=== PATIENT | female | born 1960 | race Caucasian/White ===

== ENCOUNTER → 2021-07-02 10:18 | Outpatient (BNVA) | payer MEDICARE, MEDICAID, SELFPAY | PROVIDERS: PCP Nurse Practitioner Family; Visit Provider Nurse Practitioner Family | DX: I10 Essential (primary) hypertension (principal); E78.5 Hyperlipidemia, unspecified; F32.A Depression, unspecified; K21.9 Gastro-esophageal reflux disease without esophagitis | CPT/HCPCS: 80053 ==

== ENCOUNTER → 2021-11-27 10:09 | Outpatient (BNVA) | payer MEDICARE, MEDICAID, SELFPAY | PROVIDERS: PCP Nurse Practitioner Family; Visit Provider Nurse Practitioner Family | DX: I10 Essential (primary) hypertension (principal); E78.5 Hyperlipidemia, unspecified | CPT/HCPCS: 80053; 80061 ==

== ENCOUNTER 2023-10-15 19:31 | Inpatient (IN) | payer MEDICARE, MEDICAID, SELFPAY ==
[2023-10-15 19:34] VITALS: BP 126/72; PULSE 116; RESP 20; TEMP 38.8; O2SAT 96
[2023-10-15 19:49] VITALS: BP 126/66; PULSE 114; RESP 20; O2SAT 91
--- NOTE | 2023-10-15 19:53 | CTR_ITS ---
PROCEDURE INFORMATION: Exam: CT Head Without Contrast Exam date and time: 10/15/2023 8:02 PM Age: 62 years old Clinical indication: Altered mental status/memory loss and fever; Confusion or disorientation; Patient HX: EMS arrival for AMS. Confusion with fever. TECHNIQUE: Imaging protocol: Computed tomography of the head without contrast. Radiation optimization: All CT scans at this facility use at least one of these dose optimization techniques: automated exposure control; mA and/or kV adjustment per patient size (includes targeted exams where dose is matched to clinical indication); or iterative reconstruction. COMPARISON: No relevant prior studies available. RADIATION DOSE METRICS: Total DLP (mGy-cm): 1030.88 FINDINGS: Brain: Normal. No hemorrhage. Unremarkable white matter. No mass effect. Cerebral ventricles: No ventriculomegaly. Paranasal sinuses: Visualized sinuses are unremarkable. No fluid levels. Mastoid air cells: Visualized mastoid air cells are well aerated. Bones: Unremarkable. No acute fracture. Soft tissues: Unremarkable. CT/CT head wo con* [id number] IMPRESSION: No acute intracranial abnormality.
--- NOTE | 2023-10-15 19:53 | XRR_ITS ---
PROCEDURE INFORMATION: Exam: XR Chest Exam date and time: 10/15/2023 7:58 PM Age: 62 years old Clinical indication: Fever; Additional info: Fever AMS TECHNIQUE: Imaging protocol: Radiologic exam of the chest. Views: 1 view. COMPARISON: No relevant prior studies available. FINDINGS: Lungs: Central vascular prominence without overt edema. No focal consolidations. Pleural spaces: Unremarkable. No pleural effusion. No pneumothorax. Heart/Mediastinum: Unremarkable. No cardiomegaly. Bones/joints: Unremarkable. XR/XR chest 1V portable [id number] IMPRESSION: Central vascular prominence without overt edema. No focal consolidations.
[2023-10-15 20:08] LABS: Basophils % 0.3 %; Hematocrit 35.8 % (36-47); Lymphocytes # 0.9 10^3/uL (0.8-4.8); Lymphocytes % 27.3 %; Mean Corpuscular HGB Conc 31.8 g/dL (30-55); Mean Corpuscular Hemoglobin 29.1 pg (27-33); Mean Corpuscular Volume 91.3 fl (85-98); Mean Platelet Volume 12.9 fL (7.4-10.4); Monocytes # 0.3 10^3/uL (0.2-0.9); Monocytes % 9.9 %; Neutrophils # 2.07 10^3/uL (1.8-7.7); Neutrophils % 62.2 %; Nucleated Red Blood Cells % 0 %; Platelet Count 79 10^3/cmm (157-399); Red Blood Count 3.92 10^6/uL (3.85-5.65); Red Cell Distribution Width 13.5 % (12.1-15.1); White Blood Count 3.33 10^3/uL (3.29-11.43)
--- NOTE | 2023-10-15 20:22 | W.ED.AMS ---
HPI - Altered Mental Status General: Chief Complaint: Altered Mental Status Stated Complaint: AMS Time Seen by Provider: 10/15/23 19:37 History of Present Illness: 62-year-old female with fever for the last 2 to 3 days she says she has been sick since Wednesday. She had a mild cough. No sputum production. She is having confusion. No vomiting or diarrhea. The patient lives with her daughter, who called the ambulance due to the confusion. [facility] ED PFSH: Medical History Hyperlipidemia Depression Family History Mother CAD (coronary artery disease) Social History Smoking and tobacco/nicotine status: never used tobacco/nicotine Physical Exam Const: GENERAL APPEARANCE: cooperative and ill appearing (Mildly) ORIENTATION/CONSCIOUSNESS: Yes awake, Yes oriented to person and Yes oriented to place; not oriented to time HENMT: COMMON NORMALS: normocephalic and atraumatic HEAD & SCALP: normocephalic and atraumatic FACE & SINUS: normal facial exam and face symmetric Eye: COMMON NORMALS: Equal, round and reactive pupils present and EOMs intact bilaterally PUPIL: Yes Equal, round and reactive pupils present Neck/C-Spine: CERVICAL SPINE: Yes cervical ROM normal Chest: CHEST: Yes Symmetrical chest wall rise Resp: COMMON NORMALS: normal respiratory effort, No use of accessory muscles and clear to auscultation bilaterally AUSCULTATION: clear to auscultation bilaterally Cardio: COMMON NORMALS: regular rhythm RATE: tachycardic RHYTHM: regular rhythm GI: COMMON NORMALS: Normal to inspection, nondistended, normoactive bowel sounds present and Soft to palpation PALPATION: Yes Soft to palpation Neuro: SENSORIUM/ORIENTATION: Yes oriented to person, Yes oriented to place and No oriented to time Course Vital Signs: Vital signs: Vital Signs Temperature 99.0 F 10/15/23 23:01 Pulse Rate 95 10/15/23 23:01 Respiratory Rate 18 10/15/23 23:01 Blood Pressure 118/58 10/15/23 23:01 Pulse Oximetry 94 10/15/23 23:01 Oxygen Delivery Me thod Room Air 10/15/23 23:01 MDM - Altered Mental Status Medical Decision Making Patient is awake and alert. She is answering most simple questions appropriately. She is mildly confused with more complex questions like explaining where she lives, etc. She is tachycardic. She has a fever of 102. She has leukopenia and thrombocytopenia. She does appear to have multiple bites to her legs. No other definite source of infection is found. Chest x-ray is nonacute. Head CT is nonacute. CRP is 88. COVID antigen is negative. Urinalysis does not reveal urinary tract infection. With thrombocytopenia, mild leukopenia, and a history of bug bites, tick panel has been ordered. Spoke with hospitalist. He will admit the patient. She has received a sepsis bolus and antibiotics here in the ER after blood cultures. Lab Data 10/15/23 19:42 10/15/23 19:42 Radiology Impressions Chest X-Ray 10/15/23 19:53 IMPRESSION: Central vascular prominence without overt edema. No focal consolidations. Head CT 10/15/23 19:53 IMPRESSION: No acute intracranial abnormality. Laboratory Results WBC 3.33 10^3/uL (3.29-11.43) 10/15/23 19:42 RBC 3.92 10^6/uL (3.85-5.65) 10/15/23 19:42 Hgb 11.40 g/dL (11.27-16.99) 10/15/23 19:42 Hct 35.8 % (36-47) L 10/15/23 19:42 MCV 91.3 fl (85-98) 10/15/23 19:42 MCH 29.1 pg (27-33) 10/15/23 19:42 MCHC 31.8 g/dL (30-55) 10/15/23 19:42 RDW 13.5 % (12.1-15.1) 10/15/23 19:42 Plt Count 79 10^3/cmm (157-399) L 10/15/23 19:42 MPV 12.9 fL (7.4-10.4) H 10/15/23 19:42 Neut % (Auto) 62.2 % 10/15/23 19:42 Lymph % (Auto) 27.3 % 10/15/23 19:42 [place] % (Auto) 9.9 % 10/15/23 19:42 Eos % (Auto) 0.0 % 10/15/23 19:42 Baso % (Auto) 0.3 % 10/15/23 19:42 Neut # (Auto) 2.07 10^3/uL (1.8-7.7) 10/15/23 19:42 Lymph # (Auto) 0.9 10^3/uL (0.8-4.8) 10/15/23 19:42 [place] # (Auto) 0.3 10^3/uL (0.2-0.9) 10/15/23 19:42 Eos # (Auto) 0.0 10^3/uL (0.0-0.8) 10/15/23 19:42 Baso # (Auto) 0.0 10^3/uL (0.0-0.1) 10/15/23 19:42 Nucleated RBC % (auto) 0 % 10/15/23 19:42 Nucleated RBCs # 0.0 /100WBC 10/15/23 19:42 Sodium 137 mmol/L (136-145) 10/15/23 19:42 Potassium 4.3 mmol/L (3.5-5.1) 10/15/23 19:42 Chloride 102 mmol/L (98-107) 10/15/23 19:42 Carbon Dioxide 22 mmol/L (22-29) 10/15/23 19:42 Anion Gap 17.3 (5-19) 10/15/23 19:42 BUN 14 mg/dL (8-23) 10/15/23 19:42 Creatinine 0.9 mg/dL (0.5-0.9) 10/15/23 19:42 GFR Calculation 63.7 mL/min (90-130) L 10/15/23 19:42 Glucose 92 mg/dL (65-115) 10/15/23 19:42 Estimat Average Glucose 111 10/15/23 19:42 Hemoglobin A1c 5.5 % (4.0-6.0) 10/15/23 19:42 Calculated Osmolality 284 mOsm/kg (285-295) L 10/15/23 19:42 Lactic Acid 0.8 mmol/L (0.5-2.2) 10/15/23 19:42 Calcium 7.9 mg/dL (8.5-10.5) L 10/15/23 19:42 Total Bilirubin 0.4 mg/dL (0.15-1.2) 10/15/23 19:42 AST 24 U/L (0-32) 10/15/23 19:42 ALT 24 U/L (0-33) 10/15/23 19:42 Alkaline Phosphatase 81 U/L (35-105) 10/15/23 19:42 Creatine Kinase 61 U/L (26-192) 10/15/23 19:42 C-Reactive Protein 87.5 mg/L (0.0-4.9) H 10/15/23 19:42 Total Protein 5.6 g/dL (6.6-8.7) L 10/15/23 19:42 Albumin 3.1 g/dL (3.5-5.2) L 10/15/23 19:42 Globulin 2.5 g/dL (1.3-4.6) 10/15/23 19:42 TSH 0.86 uIU/mL (0.27-4.20) 10/15/23 19:42 Urine Color Yellow (Yellow) 10/15/23 22:05 Urine Appearance Clear (CLEAR) 10/15/23 22:05 Urine pH 5 (5-7) 10/15/23 22:05 Ur Specific [place] 1.015 (1.005-1.030) 10/15/23 22:05 Urine Protein Trace (Negative) 10/15/23 22:05 Urine Glucose (UA) Norm (Normal) 10/15/23 22:05 Urine Ketones 1+ (Negative) H 10/15/23 22:05 Urine Blood Neg (Negative) 10/15/23 22:05 Urine Nitrate Negative (Negative) 10/15/23 22:05 Urine Bilirubin Neg (Negative) 10/15/23 22:05 Urine Urobilinogen Neg mg/dL (Negative) 10/15/23 22:05 Ur Leukocyte Esterase Negative (Negative) 10/15/23 22:05 Urine RBC 0-4 /hpf (0-2) H 10/15/23 22:05 Urine WBC 0-4 /hpf (0-5) H 10/15/23 22:05 Ur Squamous Epith Cells 0-4 /hpf (0-5) H 10/15/23 22:05 Amorphous Sediment Not Reportable 10/15/23 22:05 Urine Bacteria 1+ /hpf (NONE) H 10/15/23 22:05 Urine Mucus 2+ /hpf 10/15/23 22:05 SARS-CoV-2 Ag (Rapid) negative (Negative) 10/15/23 20:54 All radiology interpretation(s) finalized by discharge Discharge Plan Discharge Patient Disposition: Admitted As Inpatient Admit Provider: Rabia Cameron Clinical Impression: Sepsis, Fever Condition: Stable Coding Level of Care Code ED Dehydrogenation Converter Operator for Marcelo Severino
--- NOTE | 2023-10-15 20:33 | P.HP_ITS ---
Providers/Chief Complaint 2 Primary Care Provider: KENZIE Ruggiero Chief Complaint: AMS History of Present Illness Lula Tena is a 62 year old female who was sent by the daughter via EMS because of her confusion. In the ER she was diagnosed with fever and tachycardia. Patient is very pleasant and cooperative we have not seen any sign of meningitis, she is confused with word finding difficulty. CT head unremarkable there is no focal deficit, patient is stating that she is not sure why she was sent to the hospital. She is not endorsing headache, neck pain, chest pain, diarrhea or dysuria. She also has not noticed any tick bites. She has multiple rashes over her lower extremities. She is thrombocytopenic as well. Family not at the bedside I have tried to call her daughter twice, she is not picking up the phone call COVID-19 is negative, UA and tick panel pending Fever tachycardia tachypnea SIRS criteria met she received septic bolus along antibiotics, lactic acid normal No leukocytosis Review of Systems 2 Const: Reports: fever(s) Eyes: Denies: change in vision ENMT: Denies: throat pain Card: Denies: chest pain Resp: Denies: dyspnea GI: Denies: abdominal pain : Denies: flank pain Musc: Denies: neck pain Medications/Allergies Home Medications Medication Instructions Recorded Confirmed Last Taken Type omeprazole magnesium 20 mg 20 mg PO DAILY #30 tabs 07/02/21 12/01/21 Unknown Rx tablet,delayed release (Prilosec OTC) simvastatin 10 mg tablet (Zocor) 10 mg PO DAILY #90 tabs 01/07/22 Unknown Rx Allergies Allergy/AdvReac Type Severity Reaction Status Date / Time Penicillins Allergy vomiting Verified 12/01/21 14:31 PFSH Acute 2 PFSH: Medical History Hyperlipidemia Depression Family History Mother CAD (coronary artery disease) Social History Smoking and tobacco/nicotine status: never used tobacco/nicotine Vitals/I&O/Wt Last Vital Signs Temp 102 F H 10/15/23 19:34 Pulse 114 H 10/15/23 19:49 Resp 20 H 10/15/23 19:49 BP 126/66 10/15/23 19:49 Pulse Ox 91 10/15/23 19:49 O2 Del Method Room Air 10/15/23 19:49 Weight last 48 hrs Weight 79.379 kg Physical Exam 2 Narrative: Clinically patient looks dehydrated Word finding difficulty Pleasant but confused Oriented to herself only I do not see any focal deficit No sign of meningitis Kerning's and Brudzinski sign negative Awake and alert Tachycardic with fever Abdomen soft I do not see any joint swelling No apparent tick bite Multiple rashes over lower extremities S1, S2 Abdomen is soft Data 10/15/23 19:42 10/15/23 19:42 A&P Assessment and plan (1) Confusion: (2) Metabolic encephalopathy: (3) Fever: (4) Dehydration: (5) Sepsis: Plan Sepsis Source unknown Criteria met with fever tachypnea tachycardia no lactic acid anemia no leukocytosis X-ray unremarkable other than mild congestion CT head unremarkable No sign of meningitis Concern for tick bite Thrombocytopenia I would avoid DVT prophylaxis with anticoagulating agent Use SCDs Started on vancomycin and Zosyn Septic bolus has been given I will keep her on IV fluids overnight I do not have her previous medical history, family not reachable Please contact her family the morning Check inflammatory markers COVID-19 is negative I will request COVID PCR Full code Cardiac diet Attestations 2 Medical Necessity Statement*: More than 2 midnights anticipated Diagnoses Confusion R41.0 Metabolic encephalopathy G93.41 Fever R50.9 Dehydration E86.0 Sepsis A41.9
[2023-10-15 20:38] LABS: Lactic Sepsis W/Reflex 0.8 mmol/L (0.5-2.2)
[2023-10-15 20:41] LABS: Alanine Aminotransferase 24 U/L (0-33); Albumin Level 3.1 g/dL (3.5-5.2); Alkaline Phosphatase 81 U/L (35-105); Anion Gap 17.3 (5-19); Aspartate Amino Transferase 24 U/L (0-32); Blood Urea Nitrogen 14 mg/dL (8-23); C Reactive Protein 87.5 mg/L (0.0-4.9); Calcium 7.9 mg/dL (8.5-10.5); Carbon Dioxide 22 mmol/L (22-29); Chloride 102 mmol/L (98-107); Creatine Phosphokinase 61 U/L (26-192); Creatinine Clr Calc Pharmacy 65.4833; Globulin 2.5 g/dL (1.3-4.6); Glomerular Filtration Rate 63.7 mL/min (90-130); Glucose 92 mg/dL (65-115); Osmolality Calculated 284 mOsm/kg (285-295); Potassium 4.3 mmol/L (3.5-5.1); Sodium 137 mmol/L (136-145); Total Bilirubin 0.4 mg/dL (0.15-1.2); Total Protein 5.6 g/dL (6.6-8.7)
--- NOTE | 2023-10-15 20:52 | ECG_ITS ---
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 Measurements Intervals [place] Rate: 112 P: 60 NV: 154 QRS: -7 QRSD: 89 T: 53 QT: 310 QTc: 423 Interpretive Statements SINUS TACHYCARDIA Otherwise normal EKG No previous ECG available for comparison Electronically Signed On 10-16-2023 16:47:14 CDT by Al Stringer M.D. [email or web address] at stone [email or web address] [id number]
[2023-10-15 20:53] VITALS: BP 94/69; PULSE 114; RESP 18; O2SAT 94
[2023-10-15] MEDS: acetaminophen 500 mg Tablet 1000 MG PO (20:53)
[2023-10-15] MEDS: cefTRIAXone 1,000 mg SDV 1000 MG IVP (21:02)
[2023-10-15 21:28] LABS: SARS Covid-2 Antigen negative (Negative)
[2023-10-15] MEDS: sodium chloride 0.9% 2,381.37 ML 2381.37 ML IV (21:34)
[2023-10-15 21:49] VITALS: BP 132/80; PULSE 101; RESP 24; O2SAT 91
[2023-10-15 22:43] LABS: Add Urine Microscopic? YES; Bilirubin Urine Neg (Negative); Blood Urine Neg (Negative); Glucose Urine UA Norm (Normal); Ketones Urine 1+ (Negative); Leukocyte Esterase Urine Negative (Negative); Nitrate Urine Negative (Negative); Protein Urine Trace (Negative); Specific Gravity, Urine 1.015 (1.005-1.030); Urine Appearance Clear (CLEAR); Urine Color Yellow (Yellow); Urobilinogen Urine Neg (Negative); pH Urine 5 (5-7)
[2023-10-15 22:44] LABS: Bacteria Urine 1+ /hpf; Mucus Urine 2+ /hpf; RBC Urine 0-4 /hpf (0-2); Squamous Epithelial Cell Urine 0-4 /hpf (0-5); WBC Urine 0-4 /hpf (0-5)
[2023-10-15 23:00] LABS: Estmated Average Glucose 111; Hemoglobin A1C 5.5 % (4.0-6.0)
[2023-10-15 23:01] VITALS: BP 118/58; PULSE 95; RESP 18; TEMP 37.2; O2SAT 94
[2023-10-15 23:08] LABS: Thyroid Stimulating Hormone 0.86 uIU/mL (0.27-4.20)
[2023-10-15] MEDS: piperacillin-tazobactam 3.375 GM in sodium chloride 0.9% (plus) 50 ML IV (23:18)
[2023-10-16] MEDS: sodium chloride 0.9% 1,000 ML 75 ML IV ×2 (00:10→13:44)
[2023-10-16] MEDS: vancomycin 1,000 MG in sodium chloride 0.9% 250 ML 250 MG IV ×3 (00:13→23:23)
[2023-10-16 00:58] VITALS: BMI 30.9
[2023-10-16] MEDS: piperacillin-tazobactam 3.375 GM in sodium chloride 0.9% (plus) 50 ML IV ×3 (01:34→17:27)
[2023-10-16 02:47] LABS: Vitamin B12 342 pg/mL (232-1245)
[2023-10-16 04:05] VITALS: BP 112/72; PULSE 98; RESP 18; TEMP 37.4; O2SAT 91
[2023-10-16 05:24] LABS: Basophils % 0.6 %; Hematocrit 38.7 % (36-47); Lymphocytes # 0.9 10^3/uL (0.8-4.8); Lymphocytes % 28.5 %; Mean Corpuscular HGB Conc 30.5 g/dL (30-55); Mean Corpuscular Hemoglobin 29.5 pg (27-33); Mean Corpuscular Volume 96.8 fl (85-98); Mean Platelet Volume 12.3 fL (7.4-10.4); Monocytes # 0.2 10^3/uL (0.2-0.9); Monocytes % 7.6 %; Neutrophils # 1.97 10^3/uL (1.8-7.7); Neutrophils % 62.4 %; Nucleated Red Blood Cells % 0 %; Platelet Count 70 10^3/cmm (157-399); Red Cell Distribution Width 13.7 % (12.1-15.1); White Blood Count 3.16 10^3/uL (3.29-11.43)
[2023-10-16 05:41] LABS: Alanine Aminotransferase 23 U/L (0-33); Alkaline Phosphatase 79 U/L (35-105); Anion Gap 14.6 (5-19); Aspartate Amino Transferase 25 U/L (0-32); Blood Urea Nitrogen 13 mg/dL (8-23); Calcium 7.6 mg/dL (8.5-10.5); Carbon Dioxide 19 mmol/L (22-29); Chloride 112 mmol/L (98-107); Creatinine Clr Calc Pharmacy 68.8793; Globulin 2.4 g/dL (1.3-4.6); Glomerular Filtration Rate 63.7 mL/min (90-130); Glucose 89 mg/dL (65-115); Magnesium 1.8 mg/dL (1.7-2.3); Osmolality Calculated 292 mOsm/kg (285-295); Potassium 4.6 mmol/L (3.5-5.1); Sodium 141 mmol/L (136-145); Total Bilirubin 0.4 mg/dL (0.15-1.2); Total Protein 5.4 g/dL (6.6-8.7)
[2023-10-16 07:32] VITALS: BP 155/83; PULSE 109; RESP 16; TEMP 37.4; O2SAT 92
[2023-10-16 10:00] VITALS: PULSE 100; RESP 18; O2SAT 92
[2023-10-16] MEDS: doxycycline 100 MG in sodium chloride 0.9% (plus) 100 ML IV ×2 (10:31→21:43)
[2023-10-16 11:08] LABS: Procalcitonin 0.51 ng/mL (0-0.5)
[2023-10-16 11:26] LABS: Erythrocyte Sedimentation Rate 4 mm/hr (0-15)
[2023-10-16 11:32] LABS: Glucose Point of Care 71 mg/dL (70-110)
--- NOTE | 2023-10-16 11:50 | CTR_ITS ---
PROCEDURE INFORMATION: Exam: CT Chest Without Contrast; Diagnostic Exam date and time: 10/16/2023 1:21 PM Age: 62 years old Clinical indication: Other: Fever, confusion TECHNIQUE: Imaging protocol: Diagnostic computed tomography of the chest without contrast. Radiation optimization: All CT scans at this facility use at least one of these dose optimization techniques: automated exposure control; mA and/or kV adjustment per patient size (includes targeted exams where dose is matched to clinical indication); or iterative reconstruction. COMPARISON: CR (CHEST, ) 10/15/2023 7:58 PM RADIATION DOSE METRICS: Total DLP (mGy-cm): 991.15 FINDINGS: Lungs: See Pleural spaces finding. Pleural spaces: There are small bilateral pleural effusions with adjacent compressive atelectasis. Heart: Unremarkable. No cardiomegaly. No pericardial effusion. Coronary arteries: No coronary artery calcifications are seen. Lymph nodes: Unremarkable. No enlarged lymph nodes. Vasculature: Unremarkable. No aortic aneurysm. Diaphragm: Small hiatal hernia. Bones/joints: There are moderate degenerative changes in the visualized spine. Soft tissues: Unremarkable. PROCEDURE INFORMATION: Exam: CT Abdomen And Pelvis Without Contrast Exam date and time: 10/16/2023 1:21 PM Age: 62 years old Clinical indication: Other: Fever, confusion TECHNIQUE: Imaging protocol: Computed tomography of the abdomen and pelvis without contrast. Radiation optimization: All CT scans at this facility use at least one of these dose optimization techniques: automated exposure control; mA and/or kV adjustment per patient size (includes targeted exams where dose is matched to clinical indication); or iterative reconstruction. COMPARISON: CR (CHEST, ) 10/15/2023 7:58 PM RADIATION DOSE METRICS: Total DLP (mGy-cm): 991.15 FINDINGS: Liver: Normal. No mass. Gallbladder and biliary ducts: The gallbladder has been removed. Pancreas: Normal. No ductal dilation. Spleen: The spleen is enlarged measuring 15.1 cm. Adrenal glands: Normal. No mass. Kidneys and ureters: Normal. No hydronephrosis. Stomach and bowel: There are air-fluid levels in the distal colon suggesting mild nonspecific colitis versus other diarrheal illness. There is diverticulosis of the colon without evidence of diverticulitis. Appendix: A normal appendix is identified. Intraperitoneal space: Unremarkable. No free air. No significant fluid collection. Vasculature: Unremarkable. No abdominal aortic aneurysm. Lymph nodes: Unremarkable. No enlarged lymph nodes. Urinary bladder: Unremarkable as visualized. Reproductive: Unremarkable as visualized. Bones/joints: Unremarkable. No acute fracture. Soft tissues: Tiny fat containing umbilical hernia. CT/[place] [id number] IMPRESSION: Small bilateral pleural effusions with adjacent compressive atelectasis. IMPRESSION: 1. There are air-fluid levels in the distal colon suggesting mild nonspecific colitis versus other diarrheal illness. 2. Splenomegaly.
--- NOTE | 2023-10-16 15:58 | P.PN_ITS ---
Subjective 2 Subjective: Patient was seen this morning, she is alert to person, to place, not to time she does not know her own birthdate, but does know her name, she does not remember her address, on examination, she has no neck stiffness, Kernig sign negative, Brudzinski sign negative, she has no significant neck stiffness, no complaints of shortness of breath, no abdominal pain complaints but does report diarrhea, she does have several insect and tick bites scattered throughout her extremities, largest on the right inner thigh measuring 5 x 5 cm, nontender to touch, she is able to get up to the side of bed on her own, denies any weakness, she is able to eat her lunch, without any issues, no choking, no coughing, and examined this, no bruising, no petechiae, no purpura Vitals/I&O/Wt Last Vital Signs Temp 99.4 F 10/16/23 07:32 Pulse 100 10/16/23 10:00 Resp 18 10/16/23 10:00 BP 155/83 10/16/23 07:32 Pulse Ox 92 10/16/23 10:00 O2 Del Method Room Air 10/16/23 10:00 10/16/23 10/16/23 10/16/23 06:59 14:59 22:59 Intake Total 2731.37 / 2731.37 1637.500 / 1637.500 Output Total 700 / 700 Balance 2731.37 / 2731.37 937.500 / 937.500 Weight last 48 hrs Weight 87.572 kg Weight 79.379 kg Weight 79.379 kg Physical Exam 2 Const: COMMON NORMALS: no acute distress EXAM LIMITATIONS: altered mental status ORIENTATION/CONSCIOUSNESS: Yes awake; not oriented to person, not oriented to place and not oriented to time Eye: COMMON NORMALS: Equal, round and reactive pupils present PUPIL: Yes Equal, round and reactive pupils present Neck/C-Spine: COMMON NORMALS: full ROM and no lymphadenopathy Resp: COMMON NORMALS: normal respiratory effort, No retractions, No use of accessory muscles and clear to auscultation bilaterally AUSCULTATION: clear to auscultation bilaterally Cardio: COMMON NORMALS: regular rate, regular rhythm, S1 normal heart sound present and S2 normal heart sound present RATE: regular rate RHYTHM: r egular rhythm HEART SOUNDS: S1 normal heart sound present and S2 normal heart sound present GI: COMMON NORMALS: Normal to inspection, nondistended, normoactive bowel sounds present and non-tender : COMMON NORMALS: Yes no CVA tenderness BLADDER/KIDNEY EXAM: Yes no CVA tenderness Back/Pelvis: COMMON NORMALS: no CVA tenderness Extremity: COMMON NORMALS: no pedal edema Neuro: SENSORIUM/ORIENTATION: No oriented to person, No oriented to place and No oriented to time Data 10/16/23 05:09 10/16/23 05:09 Micro: Microbiology 10/16/23 00:00 Legionella Urinary Antigen - Final Urine,Voided Bacterial Antigens - Final 10/15/23 21:02 Blood Culture - Preliminary Blood SPECIMEN COLLECTED 10/15/23 21:00 Blood Culture - Preliminary Blood SPECIMEN COLLECTED A&P Assessment and plan (1) Confusion: (2) Metabolic encephalopathy: (3) Fever: (4) Dehydration: (5) Sepsis: (6) Tick bite: Plan Fever and confusion ? Has thrombocytopenia, developing leukopenia, CRP 106, Pro-Alirio 0.51 Likely tickborne illness ? Other concerns would be for meningitis or encephalitis however no neck stiffness, Kernig sign negative bruit, Babinski sign negative Criteria met with fever tachypnea tachycardia no lactic acid anemia no leukocytosis X-ray unremarkable other than mild congestion CT head unremarkable No sign of meningitis Concern for tick bite Thrombocytopenia I would avoid DVT prophylaxis with anticoagulating agent Use SCDs Started on vancomycin and Zosyn and doxycycline COVID-19 is negative I will request COVID PCR ? Skin examination multiple tick bites, multiple insect bites, largest on right thigh measuring 5 x 5 cm, nontender, is erythematous, macular ? Follow blood cultures ? Follow urine cultures Full code Cardiac diet Plan for today, CT of the chest, CT of the abdomen, tick panel ordered, tularemia panel ordered, monitor mentation closely, neurochecks, aspiration precautions, monitor for fevers, started on IV doxycycline, HIV, acute hep panel, EBV Attestations 2 Medical Necessity Statement*: Patient requires hospitalization for fever and confusion, concerns for tickborne illness Diagnoses Confusion R41.0 Metabolic encephalopathy G93.41 Fever R50.9 Dehydration E86.0 Sepsis A41.9 Tick bite W57.XXXA
[2023-10-16 16:00] VITALS: BP 130/80; PULSE 59; RESP 17; TEMP 37.5; O2SAT 96
[2023-10-16 16:54] LABS: HIV 1 & 2 Antibody Non-Reactive (Non-Reactiv); HIV 1 & 2 Antigen Non-Reactive (Non-Reactiv)
[2023-10-16 16:55] LABS: Hepatitis A Antibody IgM Non-Reactive (Nonreactive); Hepatitis B Core IgM Non-Reactive (Nonreactive); Hepatitis B Surface Antigen Non-Reactive (Nonreactive); Hepatitis C Virus Antibody Non-Reactive (Nonreactive)
[2023-10-16 19:33] VITALS: BP 118/67; PULSE 108; RESP 18; TEMP 37.1; O2SAT 93
[2023-10-16 20:38] LABS: Basophils % 0.6 %; Lymphocytes # 1.2 10^3/uL (0.8-4.8); Lymphocytes % 35.6 %; Mean Corpuscular HGB Conc 31.7 g/dL (30-55); Mean Corpuscular Hemoglobin 29.3 pg (27-33); Mean Corpuscular Volume 92.3 fl (85-98); Mean Platelet Volume 12.6 fL (7.4-10.4); Monocytes # 0.3 10^3/uL (0.2-0.9); Monocytes % 7.6 %; Neutrophils # 1.84 10^3/uL (1.8-7.7); Neutrophils % 55.6 %; Nucleated Red Blood Cells % 0 %; Platelet Count 58 10^3/cmm (157-399); Red Blood Count 3.79 10^6/uL (3.85-5.65); Red Cell Distribution Width 13.5 % (12.1-15.1); White Blood Count 3.31 10^3/uL (3.29-11.43)
[2023-10-16 20:40] LABS: LAB Peripheral Smear Sent for Review
[2023-10-16] MEDS: acetaminophen 500 mg Tablet PO (21:49)
[2023-10-16 23:45] VITALS: BP 110/67; PULSE 82; RESP 18; TEMP 37.1; O2SAT 93
[2023-10-17] MEDS: piperacillin-tazobactam 3.375 GM in sodium chloride 0.9% (plus) 50 ML IV ×3 (00:46→16:44)
[2023-10-17] MEDS: sodium chloride 0.9% 1,000 ML 75 ML IV ×2 (03:31→16:44)
[2023-10-17 04:44] VITALS: BP 125/62; PULSE 76; RESP 18; TEMP 36.4; O2SAT 98
[2023-10-17 05:16] LABS: Basophils % 0.3 %; Hematocrit 35.2 % (36-47); Lymphocytes # 1.6 10^3/uL (0.8-4.8); Mean Corpuscular HGB Conc 31.8 g/dL (30-55); Mean Corpuscular Hemoglobin 29.6 pg (27-33); Mean Corpuscular Volume 92.9 fl (85-98); Mean Platelet Volume 12.8 fL (7.4-10.4); Monocytes # 0.3 10^3/uL (0.2-0.9); Monocytes % 9.4 %; Neutrophils # 1.63 10^3/uL (1.8-7.7); Neutrophils % 45.2 %; Nucleated Red Blood Cells % 0 %; Platelet Count 71 10^3/cmm (157-399); Red Blood Count 3.79 10^6/uL (3.85-5.65); White Blood Count 3.61 10^3/uL (3.29-11.43)
[2023-10-17 05:57] LABS: Procalcitonin 0.44 ng/mL (0-0.5)
[2023-10-17 06:14] LABS: Alanine Aminotransferase 22 U/L (0-33); Albumin Level 2.8 g/dL (3.5-5.2); Alkaline Phosphatase 69 U/L (35-105); Anion Gap 14.9 (5-19); Aspartate Amino Transferase 29 U/L (0-32); Blood Urea Nitrogen 8 mg/dL (8-23); Calcium 7.5 mg/dL (8.5-10.5); Carbon Dioxide 19 mmol/L (22-29); Chloride 111 mmol/L (98-107); Creatinine Clr Calc Pharmacy 88.3023; Globulin 1.9 g/dL (1.3-4.6); Glomerular Filtration Rate 85.1 mL/min (90-130); Glucose 79 mg/dL (65-115); Osmolality Calculated 289 mOsm/kg (285-295); Potassium 3.9 mmol/L (3.5-5.1); Sodium 141 mmol/L (136-145); Total Bilirubin 0.3 mg/dL (0.15-1.2); Total Protein 4.7 g/dL (6.6-8.7)
[2023-10-17 07:36] VITALS: BP 121/69; PULSE 91; RESP 16; TEMP 36.8; O2SAT 95
[2023-10-17 07:41] VITALS: PULSE 87; RESP 16; O2SAT 93
[2023-10-17 10:59] LABS: Vancomycin Trough 8.6 ug/mL (10-15)
[2023-10-17] MEDS: vancomycin 1,000 MG in sodium chloride 0.9% 250 ML 250 MG IV (11:24)
[2023-10-17 11:37] VITALS: BP 111/65; PULSE 86; RESP 17; TEMP 36.8; O2SAT 94
[2023-10-17] MEDS: doxycycline 100 MG in sodium chloride 0.9% (plus) 100 ML IV (12:33)
--- NOTE | 2023-10-17 15:27 | P.PN_ITS ---
Subjective 2 Subjective: Patient was seen this morning, she is alert oriented x 4, follows all commands, she tells me that she [place] the [place], and frequently gets at bug bites, tick bites, she has chickens, she has animals, no exposure to rabbits, no deer hunting, no rabbit hunting, Vitals/I&O/Wt Last Vital Signs Temp 98.2 F 10/17/23 11:37 Pulse 86 10/17/23 11:37 Resp 17 10/17/23 11:37 BP 111/65 10/17/23 11:37 Pulse Ox 94 10/17/23 11:37 O2 Del Method Room Air 10/17/23 07:41 10/17/23 10/17/23 10/17/23 06:59 14:59 22:59 Intake Total 1900 / 4167.500 880 / 880 Output Total 600 / 1300 400 / 400 Balance 1300 / 2867.500 480 / 480 Weight last 48 hrs Weight 87.09 kg Weight 87.572 kg Weight 79.379 kg Weight 79.379 kg Physical Exam 2 Const: COMMON NORMALS: no acute distress and patient oriented x3 Resp: COMMON NORMALS: normal respiratory effort, No retractions, No use of accessory muscles and clear to auscultation bilaterally AUSCULTATION: clear to auscultation bilaterally Cardio: COMMON NORMALS: regular rate, regular rhythm, S1 normal heart sound present and S2 normal heart sound present RATE: regular rate RHYTHM: r egular rhythm HEART SOUNDS: S1 normal heart sound present and S2 normal heart sound present GI: COMMON NORMALS: Normal to inspection, nondistended, normoactive bowel sounds present and non-tender Extremity: COMMON NORMALS: no pedal edema Neuro: COMMON NORMALS: patient oriented x3, CN's II-XII intact bilaterally, moves all extremities and no focal motor deficits Psych: COMMON NORMALS: mental status grossly normal Data 10/17/23 04:42 10/17/23 04:42 Micro: Microbiology 10/15/23 21:02 Blood Culture - Preliminary Blood NEGATIVE TO DATE 10/15/23 21:00 Blood Culture - Preliminary Blood NEGATIVE TO DATE 10/16/23 00:00 Legionella Urinary Antigen - Final Urine,Voided Bacterial Antigens - Final A&P Assessment and plan (1) Confusion: (2) Metabolic encephalopathy: (3) Fever: (4) Dehydration: (5) Sepsis: (6) Tick bite: Plan Fever and confusion ? Has thrombocytopenia, developing leukopenia, CRP 106, Pro-Alirio 0.51 Likely tickborne illness ? Other concerns would be for meningitis or encephalitis however no neck stiffness, Kernig sign negative bruit, Babinski sign negative, fairly unlikely Criteria met with fever tachypnea tachycardia no lactic acid anemia no leukocytosis, resolving X-ray unremarkable other than mild congestion CT head unremarkable CT chest abdomen pelvis no acute findings No sign of meningitis Concern for tick bite, doxycycline Thrombocytopenia I would avoid DVT prophylaxis with anticoagulating agent Use SCDs on vancomycin and Zosyn and doxycycline COVID-19 is negative I will request COVID PCR ? Skin examination multiple tick bites, multiple insect bites, largest on right thigh measuring 5 x 5 cm, nontender, is erythematous, macular ? Follow blood cultures ? Follow urine cultures Full code Cardiac diet Plan for today, follow blood cultures, continue doxycycline Attestations 2 Medical Necessity Statement*: Patient requires hospitalization for tickborne illness, thrombocytopenia Diagnoses Confusion R41.0 Metabolic encephalopathy G93.41 Fever R50.9 Dehydration E86.0 Sepsis A41.9 Tick bite W57.XXXA
[2023-10-17] MEDS: acetaminophen 500 mg Tablet PO (16:44)
[2023-10-17 18:11] VITALS: BP 161/89; PULSE 77; RESP 16; TEMP 36.7; O2SAT 95
[2023-10-17 20:52] VITALS: BP 126/73; PULSE 75; RESP 18; TEMP 36.3; O2SAT 93
[2023-10-17] MEDS: vancomycin 1,250 MG/250 ML PIGGYBACK 250 MG IV (23:24)
[2023-10-18] VITALS: BP 132/75; PULSE 76; RESP 18; TEMP 36.5; O2SAT 94
[2023-10-18] MEDS: doxycycline 100 MG in sodium chloride 0.9% (plus) 100 ML IV (00:29)
[2023-10-18] MEDS: piperacillin-tazobactam 3.375 GM in sodium chloride 0.9% (plus) 50 ML IV (01:31)
[2023-10-18 04:00] VITALS: BP 150/81; PULSE 83; RESP 17; TEMP 36.6; O2SAT 90
[2023-10-18 05:12] LABS: Basophils % 0.9 %; Eosinophils % 0.7 %; Hematocrit 33.9 % (36-47); Lymphocytes % 67.5 %; Mean Corpuscular HGB Conc 32.2 g/dL (30-55); Mean Corpuscular Hemoglobin 29.4 pg (27-33); Mean Corpuscular Volume 91.4 fl (85-98); Mean Platelet Volume 12.7 fL (7.4-10.4); Monocytes # 0.3 10^3/uL (0.2-0.9); Monocytes % 6.4 %; Neutrophils # 1.01 10^3/uL (1.8-7.7); Neutrophils % 23.1 %; Nucleated Red Blood Cells % 0 %; Platelet Count 83 10^3/cmm (157-399); Red Blood Count 3.71 10^6/uL (3.85-5.65); Red Cell Distribution Width 14.2 % (12.1-15.1); White Blood Count 4.37 10^3/uL (3.29-11.43)
[2023-10-18 05:36] LABS: Alanine Aminotransferase 20 U/L (0-33); Albumin Level 2.7 g/dL (3.5-5.2); Alkaline Phosphatase 62 U/L (35-105); Anion Gap 10.5 (5-19); Aspartate Amino Transferase 24 U/L (0-32); Blood Urea Nitrogen 6 mg/dL (8-23); C Reactive Protein 56.8 mg/L (0.0-4.9); Calcium 7.7 mg/dL (8.5-10.5); Carbon Dioxide 22 mmol/L (22-29); Chloride 112 mmol/L (98-107); Creatinine Clr Calc Pharmacy 88.3023; Globulin 2.2 g/dL (1.3-4.6); Glomerular Filtration Rate 85.1 mL/min (90-130); Glucose 96 mg/dL (65-115); Osmolality Calculated 289 mOsm/kg (285-295); Potassium 3.5 mmol/L (3.5-5.1); Sodium 141 mmol/L (136-145); Total Bilirubin 0.3 mg/dL (0.15-1.2); Total Protein 4.9 g/dL (6.6-8.7)
[2023-10-18 05:42] LABS: Procalcitonin 0.28 ng/mL (0-0.5)
[2023-10-18] MEDS: sodium chloride 0.9% 1,000 ML 75 ML IV (05:58)
[2023-10-18 08:00] VITALS: BP 160/98; PULSE 80; RESP 17; TEMP 36.4; O2SAT 95
[2023-10-18 08:45] VITALS: PULSE 71; RESP 16; O2SAT 94
[2023-10-18 12:00] VITALS: BP 162/91; PULSE 78; RESP 16; TEMP 36.4; O2SAT 95
--- NOTE | 2023-10-18 12:14 | PM.DCS ---
Discharge Providers Date of Admission: 10/15/23 22:46 Date of Discharge: October 18, 2023 Attending Provider at Admission: Rabia Cameron MD Attending Provider at Discharge: Costa Sims MD Primary Care Provider: KENZIE Ruggiero Diagnoses at Discharge Discharge Diagnosis (1) Confusion: Status: Acute (2) Metabolic encephalopathy: Status: Acute (3) Fever: Status: Acute (4) Dehydration: Status: Acute (5) Sepsis: Status: Acute (6) Tick bite: Status: Acute Reason for Visit Reason for Visit: [facility] Hospital Course Hospital Course Lula Tena is a 62 year old female who was sent by the daughter via EMS because of her confusion. In the ER she was diagnosed with fever and tachycardia. Patient is very pleasant and cooperative we have not seen any sign of meningitis, she is confused with word finding difficulty. CT head unremarkable there is no focal deficit, patient is stating that she is not sure why she was sent to the hospital. She is not endorsing headache, neck pain, chest pain, diarrhea or dysuria. She also has not noticed any tick bites. She has multiple rashes over her lower extremities. She is thrombocytopenic as well. Family not at the bedside I have tried to call her daughter twice, she is not picking up the phone call COVID-19 is negative, UA and tick panel pending Fever tachycardia tachypnea SIRS criteria met she received septic bolus along antibiotics, lactic acid normal No leukocytosis Patient was admitted to [facility] for fever and confusion, with thrombocytopenia, leukopenia, history of tick bites, concerning for tickborne illness. Patient was monitored for as inpatient, received doxycycline, broad-spectrum antibiotic therapy remained afebrile, cultures so far negative, no clinical evidence of meningitis or encephalitis, no neck pain, no neck stiffness Kernig sign negative, Brudzinski sign negative, CT chest abdomen pelvis no acute findings, CT head within normal limits Overall clinically improved, mentation back to baseline, remained afebrile, cultures so far no growth she will be discharged on 2 weeks of doxycycline, she does have persistent thrombocytopenia, follow-up with primary care provider to recheck platelet count in 48 hours. Her tick panel/Lyme panel/tularemia panel is pending, follow-up with primary care provider as outpatient for results. Patient was advised if she were to have any worsening fevers, confusion to immediately come back to emergency room. Physical Exam Const: COMMON NORMALS: no acute distress and patient oriented x3 Resp: COMMON NORMALS: normal respiratory effort, No retractions, No use of accessory muscles and clear to auscultation bilaterally AUSCULTATION: clear to auscultation bilaterally Cardio: COMMON NORMALS: regular rate, regular rhythm, S1 normal heart sound present and S2 normal heart sound present RATE: regular rate RHYTHM: regular rhythm HEART SOUNDS: S1 normal heart sound present and S2 normal heart sound present GI: COMMON NORMALS: Normal to inspection, nondistended, normoactive bowel sounds present and non-tender Extremity: COMMON NORMALS: no pedal edema Neuro: COMMON NORMALS: patient oriented x3 Psych: COMMON NORMALS: mental status grossly normal Discharge Data Studies Completed and Pending Completed Studies During Hospitalization Category Date Time Status CT chest abdomen pelvis [[place] [id number] Cat Scan 10/16/23 11:50 Completed ] Routine CT head wo con* [id number] Stat Cat Scan 10/15/23 19:53 Completed XR chest 1V portable [id number] Stat Exams 10/15/23 19:53 Completed Pending at discharge Category Date Time Status Blood Culture Stat Lab 10/15/23 21:02 Results C Reactive Protein AM LABS Lab 10/19/23 04:00 Ordered C.Diff PCR (Lab) Routine Lab 10/16/23 14:28 Ordered Complete Blood Count w/Auto AM LABS Lab 10/19/23 04:00 Ordered Comprehensive Metabolic Panel AM LABS Lab 10/19/23 04:00 Ordered EBV IGG & IGM Stat Lab 10/16/23 20:24 Received Francisella tularensis IgM/IgG Routine Lab 10/16/23 20:24 Received Immunochemical Fecal OCB Routine Lab 10/16/23 14:28 Ordered Lactoferrin Routine Lab 10/16/23 14:28 Ordered OVA and Parasites, Conc and PE Routine Lab 10/16/23 14:28 Ordered Procalcitonin AM LABS Lab 10/19/23 04:00 Ordered Salmonella / Shigella / Campy Routine Lab 10/16/23 14:28 Ordered Sputum Culture and Gram Stain Routine Lab 10/15/23 22:43 Uncollected Tick Panel Stat Lab 10/15/23 21:00 Received Vancomycin Trough Timed Lab 10/19/23 10:30 Ordered Radiology Impressions Chest X-Ray 10/15/23 19:53 IMPRESSION: Central vascular prominence without overt edema. No focal consolidations. Head CT 10/15/23 19:53 IMPRESSION: No acute intracranial abnormality. Chest/Abdomen/Pelvis CT 10/16/23 11:50 IMPRESSION: Small bilateral pleural effusions with adjacent compressive atelectasis. IMPRESSION: 1. There are air-fluid levels in the distal colon suggesting mild nonspecific colitis versus other diarrheal illness. 2. Splenomegaly. Laboratory Results WBC 4.37 10^3/uL (3.29-11.43) 10/18/23 04:51 RBC 3.71 10^6/uL (3.85-5.65) L 10/18/23 04:51 Hgb 10.90 g/dL (11.27-16.99) L 10/18/23 04:51 Hct 33.9 % (36-47) L 10/18/23 04:51 MCV 91.4 fl (85-98) 10/18/23 04:51 MCH 29.4 pg (27-33) 10/18/23 04:51 MCHC 32.2 g/dL (30-55) 10/18/23 04:51 RDW 14.2 % (12.1-15.1) 10/18/23 04:51 Plt Count 83 10^3/cmm (157-399) L 10/18/23 04:51 MPV 12.7 fL (7.4-10.4) H 10/18/23 04:51 Neut % (Auto) 23.1 % 10/18/23 04:51 Lymph % (Auto) 67.5 % 10/18/23 04:51 [place] % (Auto) 6.4 % 10/18/23 04:51 Eos % (Auto) 0.7 % 10/18/23 04:51 Baso % (Auto) 0.9 % 10/18/23 04:51 Neut # (Auto) 1.01 10^3/uL (1.8-7.7) L 10/18/23 04:51 Lymph # (Auto) 3.0 10^3/uL (0.8-4.8) 10/18/23 04:51 [place] # (Auto) 0.3 10^3/uL (0.2-0.9) 10/18/23 04:51 Eos # (Auto) 0.0 10^3/uL (0.0-0.8) 10/18/23 04:51 Baso # (Auto) 0.0 10^3/uL (0.0-0.1) 10/18/23 04:51 Nucleated RBC % (auto) 0 % 10/18/23 04:51 Nucleated RBCs # 0.0 /100WBC 10/18/23 04:51 Peripher Smr Path Cons Sent for review 10/16/23 20:24 ESR 4 mm/hr (0-15) 10/16/23 05:09 Sodium 141 mmol/L (136-145) 10/18/23 04:51 Potassium 3.5 mmol/L (3.5-5.1) 10/18/23 04:51 Chloride 112 mmol/L (98-107) H 10/18/23 04:51 Carbon Dioxide 22 mmol/L (22-29) 10/18/23 04:51 Anion Gap 10.5 (5-19) 10/18/23 04:51 BUN 6 mg/dL (8-23) L 10/18/23 04:51 Creatinine 0.7 mg/dL (0.5-0.9) 10/18/23 04:51 GFR Calculation 85.1 mL/min (90-130) L 10/18/23 04:51 Glucose 96 mg/dL (65-115) 10/18/23 04:51 POC Glucose 71 mg/dL (70-110) 10/16/23 11:28 Estimat Average Glucose 111 10/15/23 19:42 Hemoglobin A1c 5.5 % (4.0-6.0) 10/15/23 19:42 Calculated Osmolality 289 mOsm/kg (285-295) 10/18/23 04:51 Lactic Acid 0.8 mmol/L (0.5-2.2) 10/15/23 19:42 Calcium 7.7 mg/dL (8.5-10.5) L 10/18/23 04:51 Magnesium 1.8 mg/dL (1.7-2.3) 10/16/23 05:09 Total Bilirubin 0.3 mg/dL (0.15-1.2) 10/18/23 04:51 AST 24 U/L (0-32) 10/18/23 04:51 ALT 20 U/L (0-33) 10/18/23 04:51 Alkaline Phosphatase 62 U/L (35-105) 10/18/23 04:51 Creatine Kinase 61 U/L (26-192) 10/15/23 19:42 C-Reactive Protein 56.8 mg/L (0.0-4.9) H 10/18/23 04:51 Total Protein 4.9 g/dL (6.6-8.7) L 10/18/23 04:51 Albumin 2.7 g/dL (3.5-5.2) L 10/18/23 04:51 Globulin 2.2 g/dL (1.3-4.6) 10/18/23 04:51 Vitamin B12 342 pg/mL (232-1245) 10/15/23 19:42 Procalcitonin 0.28 ng/mL (0-0.5) 10/18/23 04:51 TSH 0.86 uIU/mL (0.27-4.20) 10/15/23 19:42 Urine Color Yellow (Yellow) 10/15/23 22:05 Urine Appearance Clear (CLEAR) 10/15/23 22:05 Urine pH 5 (5-7) 10/15/23 22:05 Ur Specific [place] 1.015 (1.005-1.030) 10/15/23 22:05 Urine Protein Trace (Negative) 10/15/23 22:05 Urine Glucose (UA) Norm (Normal) 10/15/23 22:05 Urine Ketones 1+ (Negative) H 10/15/23 22:05 Urine Blood Neg (Negative) 10/15/23 22:05 Urine Nitrate Negative (Negative) 10/15/23 22:05 Urine Bilirubin Neg (Negative) 10/15/23 22:05 Urine Urobilinogen Neg mg/dL (Negative) 10/15/23 22:05 Ur Leukocyte Esterase Negative (Negative) 10/15/23 22:05 Urine RBC 0-4 /hpf (0-2) H 10/15/23 22:05 Urine WBC 0-4 /hpf (0-5) H 10/15/23 22:05 Ur Squamous Epith Cells 0-4 /hpf (0-5) H 10/15/23 22:05 Amorphous Sediment Not Reportable 10/15/23 22:05 Urine Bacteria 1+ /hpf (NONE) H 10/15/23 22:05 Urine Mucus 2+ /hpf 10/15/23 22:05 Vancomycin Trough 8.6 ug/mL (10-15) L 10/17/23 10:24 Hepatitis A IgM Ab Non-reactive (Nonreactive) 10/15/23 19:42 Hep Bs Antigen Non-reactive (Nonreactive) 10/15/23 19:42 Hep B Core IgM Ab Non-reactive (Nonreactive) 10/15/23 19:42 Hepatitis C Antibody Non-reactive (Nonreactive) 10/15/23 19:42 HIV 1&2 Ab & HIV 1 Ag Non-reactive (Non-Reactiv) 10/15/23 19:42 HIV 1&2 Antibody Non-reactive (Non-Reactiv) 10/15/23 19:42 SARS-CoV-2 Ag (Rapid) negative (Negative) 10/15/23 20:54 Vitals Last Vital Signs Temp 97.5 F L 10/18/23 08:00 Pulse 71 10/18/23 08:45 Resp 16 10/18/23 08:45 BP 160/98 10/18/23 08:00 Pulse Ox 94 10/18/23 08:45 O2 Del Method Room Air 10/18/23 08:45 Discharge Plan Discharge Patient Disposition: Home Condition: Stable Prescriptions: New doxycycline hyclate 100 mg tablet 100 mg PO BID 14 Days Qty: 28 0RF Continued omeprazole magnesium [Prilosec OTC] 20 mg tablet,delayed release (DR/EC) 20 mg PO DAILY Qty: 30 0RF simvastatin [Zocor] 10 mg tablet 10 mg PO DAILY Qty: 90 0RF Discharge Orders: Discharge Order (Routine); Ordered 10/18/23 Ordered By: Costa Sims Discharge Diet: Cardiac Discharge Activity: Resume usual activity Patient Instructions: Opioid Safety Activity Restrictions/Additional Instructions: - Please see your primary care provider within 48 hours, have your primary care provider check your platelet count in 48 hours, platelet count on discharge is 83,000 Discharge Attestations Time Spent in Discharge Care*: greater than 30 min Quality Metrics Clinical Quality Measures [ No reported AMI, CVA or VTE this stay] Coding Level of Care Code 33297 Total time (in minutes) for Discharge: 45 Diagnoses Confusion R41.0 Metabolic encephalopathy G93.41 Fever R50.9 Dehydration E86.0 Sepsis A41.9 Tick bite W57.XXXA
[2023-10-18 13:11] LABS: Lyme AB Screen <0.90 index
[2023-10-18 14:38] VITALS: BP 162/91; PULSE 78; RESP 16; TEMP 36.4; O2SAT 95
[2023-10-18 17:24] LABS: EBV IGG TEST <18.00 U/mL; EBV IGM TEST <36.00 U/mL
[2023-10-21 16:19] LABS: E. Chaffeensis AB IGG <1:64; E. Chaffeensis AB IGM <1:20
[2023-10-21 17:04] LABS: RMSF IGG NOT DETECTED; RMSF IGM NOT DETECTED
[2023-10-21 22:35] LABS: F.tularensis IgG AB Serum Negative (Negative); F.tularensis IgM AB Serum Negative (Negative)
== END 2023-10-18 14:21 | disposition home or self-care (01) | DRG 72 ==
LOC: ER 22:52 → MEDSURG 23:02
PROVIDERS: Admitting Provider Internal Medicine; Emergency Provider Emergency Medicine; PCP Nurse Practitioner Family; Visit Provider Family Medicine
DX: G93.41 Metabolic encephalopathy (principal); E86.0 Dehydration; R50.9 Fever, unspecified; S70.361A Insect bite (nonvenomous), right thigh, initial encounter; X58.XXXA Exposure to other specified factors, initial encounter; R21 Rash and other nonspecific skin eruption; D69.6 Thrombocytopenia, unspecified; D72.819 Decreased white blood cell count, unspecified; R00.0 Tachycardia, unspecified
CPT/HCPCS: 36415; 36416; 70450; 71045; 71250; 74176; 80048; 80053; 80074; 80202; 80503; 81001; 82550; 82607; 82962; 83036; 83605; 83735; 84145; 84443; 85025; 85651; 86140; 86160; 86403; 86618; 86664; 86665; 86666; 86668; 86757; 87040; 87426; 87449; 87806; 93005; 96365; 96367; 96375; 99285; J0696; J2543; J3370; J3490; J7030; J7050